=== PATIENT | female | born 1990 | race American Indian/Alaskan Native ===

== ENCOUNTER 2017-02-07 21:39 | Emergency (ER) | payer MEDICAID ==
[2017-02-07 23:21] LABS: Anion Gap 19 mmol/L; Blood Urea Nitrogen 8 mg/dL (7-17); Calcium 8.8 mg/dL (8.4-10.2); Carbon Dioxide 23 mmol/L (22-30); Chloride 95.3 mmol/L (98-107); Glucose 97 mg/dL (65-100); Potassium 3.2 mmol/L (3.6-5.0); Sodium 134 mmol/L (137-145)
[2017-02-07 23:23] LABS: Hematocrit 35.7 % (30.3-42.9); Mean Corpuscular HGB Conc 34 % (30-34); Mean Corpuscular Hemoglobin 31 pg (28-32); Mean Corpuscular Volume 92 fl (79-97); Platelet Count 218 K/mm3 (140-440); Red Blood Count 3.88 M/mm3 (3.65-5.03); Red Cell Distribution Width 14.5 % (13.2-15.2); White Blood Count 10.6 K/mm3 (4.5-11.0)
--- NOTE | 2017-02-08 02:53 | Emergency Department Report ---
HPI - General Chief Complaint: Sore Throat Time Seen by Provider: 02/08/17 02:41 - HPI HPI: Patient is a 26-year-old female presents to ED complaining of pain with swallowing 3 days. Patient states she feels like her throat is sore she describes pain as throbbing and aching in nature she states she is an episode of vomiting today. She admits to mild fever as well as intermittent, generalized, mild generalized headache. Patient states last menstrual period and states she is currently on her cycle. She denies chest pain, shortness of breath, abdominal pain, diarrhea, ED Past Medical Hx - Past Medical History Previous Medical History?: No - Surgical History Past Surgical History?: No - Social History Smoking Status: Current Every Day Smoker Substance Use Type: None - Medications Home Medications: Home Medications Medication Instructions Recorded Confirmed Last Taken Type Cyclobenzaprine HCl [Flexeril 5 MG 5 mg PO TID #20 tab 06/26/15 Unknown Rx TAB] Meclizine [Antivert] 25 mg PO TID PRN #20 tablet 06/26/15 Unknown Rx Vit No.130/Iron/FA 1 each PO QDAY #30 tablet 04/03/16 Unknown Rx [ Tablet] Ibuprofen [Motrin 600 MG tab] 600 mg PO Q8H PRN #30 tablet 02/08/17 Unknown Rx Ondansetron [Zofran ODT TAB] 8 mg PO Q8HR #30 tab.rapdis 02/08/17 Unknown Rx ED Review of Systems ROS: Stated complaint: CAN'T SWALLOW, HEADACHE, VOMITTING, SWEATING Other details as noted in HPI Constitutional: denies: chills, fever Eyes: denies: eye pain, eye discharge, vision change ENT: denies: ear pain, throat pain Respiratory: denies: cough, shortness of breath, wheezing Cardiovascular: denies: chest pain, palpitations Endocrine: no symptoms reported Gastrointestinal: denies: abdominal pain, nausea, diarrhea Genitourinary: denies: urgency, dysuria, discharge Musculoskeletal: denies: back pain, joint swelling, arthralgia Skin: denies: rash, lesions Neurological: denies: headache, weakness, paresthesias Psychiatric: denies: anxiety, depression Hematological/Lymphatic: denies: easy bleeding, easy bruising Physical Exam - Physical Exam Vital Signs: Vital Signs 02/07/17 22:01 Temperature 99.4 F Pulse Rate 90 Respiratory 18 Rate Blood Pressure 113/79 [Right] O2 Sat by Pulse 100 Oximetry Physical Exam: GENERAL: Alert and oriented x3, no apparent distress, Normal Gait, atraumatic. HEAD: Head is normocephalic and a-traumatic. EYES: Extra ocular muscles are intact. Pupils are equal, round, and reactive to light and accommodation. EARS: symetrical, atraumatic, non tender, ear canal clear and moderate cerumen, tympanic membrance non inflamed. gross auditory nml bilaterally. NOSE: Nose symetrical, Nontender,Nares appeared normal. MOUTH:Mouth is well hydrated and without lesions. Tonsils nonerythematous or swollen, Uvula midline, Tongue not elevated. Mucous membranes are moist. Posterior pharynx clear, no exudate or lesions. Patent airways. NECK: Supple. Non edematous, No lymphadenopathy or thyromegaly. No C-spine tenderness LUNGS: Symetrical with respiration, No wheezing, no rales or crackles, CTAB. HEART: S1, S2 present, regular rate and rhythm without murmur, no rubs, no gallops. Non tender to palpation ABDOMEN: No organomegaly was noted,Positive bowel sounds, soft, and non- distended. . Nontender to palpation on all Quadrants, NO CVA tenderness. PSYCHIATRIC: Mood is congruent with affect, denies suicidal or homicidal ideations. SKIN: Warm and dry, No lesions, No ulceration or induration present. ED Course Vital Signs 02/07/17 22:01 Temperature 99.4 F Pulse Rate 90 Respiratory 18 Rate Blood Pressure 113/79 [Right] O2 Sat by Pulse 100 Oximetry ED Medical Decision Making - Lab Data Result diagrams: 02/07/17 22:40 02/07/17 22:40 - Medical Decision Making 25-year-old female presents with ED course: CBC, CMP, urine test, urinalysis, as ordered. Rapid strep test was ordered. Rapid strep test negative. CBC shows low sodium and chloride Patient received 1 L of normal saline, Reglan. Discussed findings with patient. Discussed the patient will be sent home on nausea medication and encouraged increased saturation daily Vital signs are normal patient is no acute distress patient reports feeling better prior to discharge Critical care attestation.: If time is entered above; I have spent that time in minutes in the direct care of this critically ill patient, excluding procedure time. ED Disposition Clinical Impression: Dehydration, mild Acute pharyngitis Qualifiers: Pharyngitis/tonsillitis etiology: unspecified etiology Qualified Code(s): J02.9 - Acute pharyngitis, unspecified Disposition: - TO HOME OR SELFCARE Is pt being admited?: No Does the pt Need Aspirin: No Condition: Stable Instructions: Dehydration (ED), Pharyngitis (ED), Acute Nausea and Vomiting (ED ) Additional Instructions: Make sure you train plenty of fluids daily. Soft food diet Neuro rapid strep test was negative You received IV fluids to hydrate you Follow-up with her primary care physician Prescriptions: Ibuprofen [Motrin 600 MG tab] 600 mg PO Q8H PRN #30 tablet PRN Reason: Pain Ondansetron [Zofran ODT TAB] 8 mg PO Q8HR #30 tab.rapdis Referrals: PRIMARY CARE, [Primary Care Provider] - 3-5 Days PEDRO CASEY MD [Referring] - 3-5 Days [facility] [Outside] - 3-5 Days [facility] [Outside] - 3-5 Days [facility] [Outside] - 3-5 Days Forms: Accompanied Note, Work/School Release Form(ED) Time of Disposition: 06:50
[2017-02-08 04:06] LABS: Bilirubin,Urine NEG (Negative); Blood,Urine LG (Negative); Ketones,Urine 80 mg/dL (Negative); Leukocyte Esterase,Urine TR (Negative); Mucus,Urine 3+ /HPF; Nitrite,Urine NEG (Negative)
[2017-02-08] MEDS ORDERED: NACL 0.9% 1000 ML 1,000 ML IV ONE (04:32)
[2017-02-08] MEDS ORDERED: REGLAN IV ONE (04:32)
[2017-02-08 07:27] VITALS: BP 105/68
== END 2017-02-08 07:26 | disposition home or self-care (01) ==
LOC: ED 21:39
DX: E86.0 Dehydration (principal); J02.9 Acute pharyngitis, unspecified; F17.200 Nicotine dependence, unspecified, uncomplicated
CPT/HCPCS: 36415; 80048; 81001; 85025; 87116; 87430; 96361; 96374; 99283; J2765; J7030

== ENCOUNTER 2017-04-24 09:32 | Emergency (ER) | payer OTHER, MEDICAID ==
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
[2017-04-24] MEDS: MOTRIN PO ONE (11:58)
--- NOTE | 2017-04-24 12:14 | XRay Report ---
LUMBOSACRAL SPINE, 3 VIEWS: History: Back pain Findings: The vertebral bodies, disk spaces and posterior elements are intact. No compression deformity or malalignment. The SI joints are symmetric and unremarkable. Impression: 1. No evidence for acute injury to the lumbar spine.
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
[2017-04-24 13:02] VITALS: BP 119/72
== END 2017-04-24 13:02 | disposition home or self-care (01) ==
LOC: ED 09:32
DX: S39.012A Strain of muscle, fascia and tendon of lower back, initial encounter (principal); V89.2XXA Person injured in unspecified motor-vehicle accident, traffic, initial encounter; Y93.9 Activity, unspecified; Y99.9 Unspecified external cause status; Y92.410 Unspecified street and highway as the place of occurrence of the external cause
CPT/HCPCS: 72100; 99283

== ENCOUNTER 2020-07-10 13:27 | Emergency (ER) | payer MEDICAID ==
--- NOTE | 2020-07-10 13:59 | Event Note ---
ED Screening Note Date of service: 07/10/20 Time: 13:58 ED Screening Note: 6 weeks and complains of abdominal pain and vaginal bleeding starting this morning Third Has not seen an [facility] yet This initial assessment/diagnostic orders/clinical plan/treatment(s) is/are subject to change based on patients health status, clinical progression and re- assessment by fellow clinical providers in the ED. Further treatment and workup at subsequent clinical providers discretion. Patient/guardian urged not to elope from the ED as their condition may be serious if not clinically assessed and managed. Initial orders include: Labs Ultrasound
[2020-07-10 15:29] LABS: Basophils % (Auto) 0.3 % (0.0-1.8); Hemoglobin 12.4 gm/dl (10.1-14.3); Lymphocytes # (Auto) 0.8 K/mm3 (1.2-5.4); Lymphocytes % (Auto) 9.2 % (13.4-35.0); Mean Corpuscular HGB Conc 33 % (30-34); Mean Corpuscular Volume 92 fl (79-97); Monocytes # (Auto) 0.3 K/mm3 (0.0-0.8); Monocytes % (Auto) 3.3 % (0.0-7.3); Platelet Count 295 K/mm3 (140-440); Red Blood Count 4.02 M/mm3 (3.65-5.03); Red Cell Distribution Width 13.6 % (13.2-15.2)
[2020-07-10 15:46] LABS: Alanine Aminotransferase 15 units/L (7-56); Albumin 4.3 g/dL (3.9-5); Blood Urea Nitrogen 10 mg/dL (7-17); Hemolysis Index 3
[2020-07-10 15:49] LABS: BUN/Creatinine Ratio 25
[2020-07-10 15:59] LABS: Bilirubin,Urine NEG (Negative); Blood,Urine NEG (Negative); Color,Urine Yellow (Yellow); Mucus,Urine 3+ /HPF; Protein,Urine <15 mg/dL mg/dL (Negative); Urobilinogen,Urine < 2.0 mg/dL (<2.0)
--- NOTE | 2020-07-10 16:56 | Emergency Department Report ---
HPI - General Chief Complaint: Vaginal Bleeding Time Seen by Provider: 07/10/20 13:57 - HPI HPI: This is a 29-year-old -[place] female who presents to the emergency department with complaint of right lower abdominal and pelvic sharp and cramping pains, mild vaginal bleeding, and some lightheadedness, while . The patient says that her last menstrual cycle was May 23 and she recently had a positive home test. She does not have any RAFTSMAN. She is not on any vitamins. She denies any other past medical history. She has not taken anything for symptoms prior to presentation. No known aggravating or alleviating factors. Currently she says that the abdominal/pelvic pain is 8 out of 10 in intensity. ED Past Medical Hx - Past Medical History Previous Medical History?: No - Surgical History Past Surgical History?: No - Social History Smoking Status: Never Smoker Substance Use Type: None - Medications Home Medications: Home Medications Medication Instructions Recorded Confirmed Last Taken Type Cyclobenzaprine HCl [Flexeril 5 MG 5 mg PO TID #20 tab 06/26/15 Unknown Rx TAB] Meclizine [Antivert] 25 mg PO TID PRN #20 tablet 06/26/15 Unknown Rx Vit No.130/Iron/Folic 1 each PO QDAY #30 tablet 04/03/16 Unknown Rx [ Tablet] Ibuprofen [Motrin 600 MG tab] 600 mg PO Q8H PRN #30 tablet 02/08/17 Unknown Rx Ondansetron [Zofran ODT TAB] 8 mg PO Q8HR #30 tab.rapdis 02/08/17 Unknown Rx Cyclobenzaprine [Flexeril] 10 mg PO BID PRN #10 tablet 04/24/17 Unknown Rx Ibuprofen [Motrin 600 MG tab] 600 mg PO Q8H PRN #30 tablet 04/24/17 Unknown Rx ED Review of Systems ROS: Stated complaint: DIZZY Other details as noted in HPI Comment: All other systems reviewed and negative Constitutional: denies: chills, fever Eyes: denies: eye pain, vision change ENT: denies: ear pain, throat pain Respiratory: denies: cough, shortness of breath Cardiovascular: denies: chest pain, palpitations Gastrointestinal: abdominal pain. denies: vomiting Genitourinary: other (pelvic pain, vaginal bleeding). denies: dysuria Musculoskeletal: denies: back pain, arthralgia Skin: denies: rash, lesions Neurological: denies: headache, weakness Physical Exam - Physical Exam Vital Signs: Vital Signs 07/10/20 14:03 Temperature 98.7 F Pulse Rate 96 H Respiratory 16 Rate Blood Pressure 120/68 [Right] O2 Sat by Pulse 100 Oximetry Physical Exam: GENERAL: The patient is well-developed well-nourished. HENT: Normocephalic. Atraumatic. Patient has moist mucous membranes. EYES: Extraocular motions are intact. NECK: Supple. Trachea is midline. CHEST/LUNGS: Clear to auscultation. There is no respiratory distress noted. HEART/CARDIOVASCULAR: Regular. There is no tachycardia. There is no murmur. ABDOMEN: Abdomen is soft. Unable to reproduce lower abdominal or pelvic pain to palpation. No guarding. Patient has normal bowel sounds. SKIN: Skin is warm and dry. NEURO: The patient is awake, alert, and oriented. The patient is cooperative. The patient has no focal neurologic deficits. Normal speech. MUSCULOSKELETAL: There is no tenderness or deformity. There is no limitation range of motion. ED Course Vital Signs 07/10/20 14:03 Temperature 98.7 F Pulse Rate 96 H Respiratory 16 Rate Blood Pressure 120/68 [Right] O2 Sat by Pulse 100 Oximetry - Consultations Consultation #1: 07/10/20 20:14 As the patient has right-sided pelvic pain and the ultrasound shows a slightly prominent right ovary without evidence of intrauterine or ectopic , I wanted to speak to the RAFTSMAN on-call. Dr. Patel is in agreement that the patient can follow-up outpatient but should get a repeat hormone level and reevaluation in 2 days. ED Medical Decision Making - Lab Data Result diagrams: 07/10/20 14:47 07/10/20 14:47 Lab Results 07/10/20 07/10/20 07/10/20 Range/Units 14:47 14:47 14:47 WBC 9.2 (4.5-11.0) K/mm3 RBC 4.02 (3.65-5.03) M/mm3 Hgb 12.4 (10.1-14.3) gm/dl Hct 37.0 (30.3-42.9) % MCV 92 (79-97) fl MCH 31 (28-32) pg MCHC 33 (30-34) % RDW 13.6 (13.2-15.2) % Plt Count 295 (140-440) K/mm3 Lymph % (Auto) 9.2 L (13.4-35.0) % [place] % (Auto) 3.3 (0.0-7.3) % Eos % (Auto) 0.0 (0.0-4.3) % Baso % (Auto) 0.3 (0.0-1.8) % Lymph # (Auto) 0.8 L (1.2-5.4) K/mm3 [place] # (Auto) 0.3 (0.0-0.8) K/mm3 Eos # (Auto) 0.0 (0.0-0.4) K/mm3 Baso # (Auto) 0.0 (0.0-0.1) K/mm3 Seg Neutrophils % 87.2 H (40.0-70.0) % Seg Neutrophils # 8.1 H (1.8-7.7) K/mm3 Sodium 137 (137-145) mmol/L Potassium 3.5 L (3.6-5.0) mmol/L Chloride 103.8 (98-107) mmol/L Carbon Dioxide 24 (22-30) mmol/L Anion Gap 13 mmol/L BUN 10 (7-17) mg/dL Creatinine 0.4 L (0.6-1.2) mg/dL Estimated GFR > 60 ml/min BUN/Creatinine Ratio 25 % Glucose 122 H (65-100) mg/dL Calcium 9.0 (8.4-10.2) mg/dL Total Bilirubin 0.20 (0.1-1.2) mg/dL AST 16 (5-40) units/L ALT 15 (7-56) units/L Alkaline Phosphatase 62 (35-129) units/L Total Protein 7.5 (6.3-8.2) g/dL Albumin 4.3 (3.9-5) g/dL Albumin/Globulin Ratio 1.3 % HCG, Quant 1314 H (0-4) mIU/mL Urine Color (Yellow) Urine Turbidity (Clear) Urine pH (5.0-7.0) Ur Specific [place] (1.003-1.030) Urine Protein (Negative) mg/dL Urine Glucose (UA) (Negative) mg/dL Urine Ketones (Negative) mg/dL Urine Blood (Negative) Urine Nitrite (Negative) Urine Bilirubin (Negative) Urine Urobilinogen (<2.0) mg/dL Ur Leukocyte Esterase (Negative) Urine WBC (Auto) (0.0-6.0) /HPF Urine RBC (Auto) (0.0-6.0) /HPF U Epithel Cells (Auto) (0-13.0) /HPF Urine Mucus /HPF Blood Type 07/10/20 07/10/20 Range/Units 14:47 15:41 WBC (4.5-11.0) K/mm3 RBC (3.65-5.03) M/mm3 Hgb (10.1-14.3) gm/dl Hct (30.3-42.9) % MCV (79-97) fl MCH (28-32) pg MCHC (30-34) % RDW (13.2-15.2) % Plt Count (140-440) K/mm3 Lymph % (Auto) (13.4-35.0) % [place] % (Auto) (0.0-7.3) % Eos % (Auto) (0.0-4.3) % Baso % (Auto) (0.0-1.8) % Lymph # (Auto) (1.2-5.4) K/mm3 [place] # (Auto) (0.0-0.8) K/mm3 Eos # (Auto) (0.0-0.4) K/mm3 Baso # (Auto) (0.0-0.1) K/mm3 Seg Neutrophils % (40.0-70.0) % Seg Neutrophils # (1.8-7.7) K/mm3 Sodium (137-145) mmol/L Potassium (3.6-5.0) mmol/L Chloride (98-107) mmol/L Carbon Dioxide (22-30) mmol/L Anion Gap mmol/L BUN (7-17) mg/dL Creatinine (0.6-1.2) mg/dL Estimated GFR ml/min BUN/Creatinine Ratio % Glucose (65-100) mg/dL Calcium (8.4-10.2) mg/dL Total Bilirubin (0.1-1.2) mg/dL AST (5-40) units/L ALT (7-56) units/L Alkaline Phosphatase (35-129) units/L Total Protein (6.3-8.2) g/dL Albumin (3.9-5) g/dL Albumin/Globulin Ratio % HCG, Quant (0-4) mIU/mL Urine Color Yellow (Yellow) Urine Turbidity Clear (Clear) Urine pH 6.0 (5.0-7.0) Ur Specific [place] 1.025 (1.003-1.030) Urine Protein <15 mg/dl (Negative) mg/dL Urine Glucose (UA) Neg (Negative) mg/dL Urine Ketones Neg (Negative) mg/dL Urine Blood Neg (Negative) Urine Nitrite Neg (Negative) Urine Bilirubin Neg (Negative) Urine Urobilinogen < 2.0 (<2.0) mg/dL Ur Leukocyte Esterase Neg (Negative) Urine WBC (Auto) 2.0 (0.0-6.0) /HPF Urine RBC (Auto) 2.0 (0.0-6.0) /HPF U Epithel Cells (Auto) 7.0 (0-13.0) /HPF Urine Mucus 3+ /HPF Blood Type AB POSITIVE - Radiology Data Radiology results: report reviewed US OB transvaginal, US OB <= 14 weeks fetus INDICATION / CLINICAL INFORMATION: pain and bleeding in . COMPARISON: None available. FINDINGS: No evidence of intrauterine . Endometrial stripe measures 8 mm in thickness. Right ovary is slightly prominent, measuring 5 cm x 4 cm x 3.5 cm, but there is no abnormal ovarian mass. Left ovary is negative. Color Doppler imaging shows normal vascular flow in both ovaries. Some free fluid is demonstrated, with increased echogenicity, possibly hemorrhage. - Medical Decision Making This patient presents to the emergency department with complaint of some lower abdominal and/or pelvic pain, worst on the right side, as well as some vaginal bleeding that started this morning. The patient believes herself to be about 6 weeks as her last menstrual cycle was in mid May and she had a positive home test. On examination I am unable to reproduce any abdominal or pelvic pain to palpation, but the patient continues to say that she has right-sided pains. The abdomen is soft, nondistended and nontoxic in appearance. Patient's labs are mostly unremarkable but does show a beta-hCG of 1314. The patient had a transvaginal/ ultrasound that shows a mildly enlarged right ovary with normal flow to the bilateral ovaries, some debris within the uterus that may be blood, but no evidence of intrauterine . The endometrial stripe appears to be a normal size. The patient's blood type is AB+ and therefore she does not require the RhoGam shot at this time. I spoke to the RAFTSMAN on-call given the reading of a slightly prominent right ovary without evidence of intrauterine . He is in agreement that the patient can safely follow-up outpatient but recommends reevaluation, and most likely a repeat beta-hCG, in 2 days. The patient has been instructed to go to the closest emergency department with any increased abdominal or pelvic pain, increased vaginal bleeding, or with any acute distress. Critical Care Time: No Critical care attestation.: If time is entered above; I have spent that time in minutes in the direct care of this critically ill patient, excluding procedure time. ED Disposition Clinical Impression: Threatened miscarriage Disposition: DC- TO HOME OR SELFCARE Is pt being admited?: No Condition: Stable Instructions: Threatened Miscarriage, Vaginal Bleeding During , First Trimester Additional Instructions: Please follow-up with an RAFTSMAN or return to the emergency department in 2 days for a repeat hormone level, as well as a repeat evaluation. Your hormone level today was 1314. Return to the closest emergency department sooner with any increased pain, increased bleeding, or with any acute distress. Please avoid any NSAIDs, such as ibuprofen, Aleve, naproxen, until follow-up w ith an RAFTSMAN. You can take Tylenol every 4-6 hours, using the dosing on the back of the bottle, as needed for any discomfort. Referrals: [facility] [Primary Care Provider] - 2-3 Days [facility] [Provider Group] - 2-3 Days [facility] [Provider Group] - 2-3 Days [facility] [Provider Group] - 2-3 Days Time of Disposition: 20:17
[2020-07-10] MEDS ORDERED: ACETAMINOPHEN 325 MG TAB PO ONE (17:21)
--- NOTE | 2020-07-10 19:38 | Ultrasound Report ---
US OB transvaginal, US OB <= 14 weeks fetus INDICATION / CLINICAL INFORMATION: pain and bleeding in . COMPARISON: None available. FINDINGS: No evidence of intrauterine . Endometrial stripe measures 8 mm in thickness. Right ovary is slightly prominent, measuring 5 cm x 4 cm x 3.5 cm, but there is no abnormal ovarian m ass. Left ovary is negative. Color Doppler imaging shows normal vascular flow in both ovaries. Some free fluid is demonstrated, with increased echogenicity, possibly hemorrhage. Signer Name: Judson Mazariegos MD Signed: 07/10/2020 7:34 PM Workstation Name: [id number]
[2020-07-10] MEDS ORDERED: HYDROcodone/ACETAMINOPHEN 5-325 MG TAB PO ONE (20:09)
[2020-07-10 20:34] VITALS: BP 115/63
== END 2020-07-10 20:35 | disposition home or self-care (01) ==
LOC: ED 13:27
DX: O20.0 Threatened abortion (principal); Z3A.01 Less than 8 weeks gestation of pregnancy; Z79.1 Long term (current) use of non-steroidal anti-inflammatories (NSAID); Z79.899 Other long term (current) drug therapy
CPT/HCPCS: 36415; 76801; 76817; 80053; 81001; 84702; 85025; 86900; 86901

== ENCOUNTER 2020-07-23 11:35 | Observation (INO) | payer MEDICAID ==
--- NOTE | 2020-07-23 13:44 | Short Stay Summary ---
Short Stay Documentation Date of service: 07/23/20 Narrative H&P: This is a 29 year-old female who presented to ED with vaginal bleeding on 07/10/2020. She was noted to have a QBHCG of 1314. She was allowed home and was evaluated n our office on 07/21/20 where by her LMP she should have been 8weeks ga however US revealed no IUP, QBHCG drawn on that days was 2015. She presented today for follow up stating she as had heavy vaginal bleeding and minimal pain. Findings and options reviewed, questions were encouraged and answered. She desires to proceed with Methotrexate therapy for suspected ectopic . Consent reviewed and signed she was instructed to go to [facility] for Methotrexate therapy. Past History : 4 Term Births: 2 Premature Births: 0 Living Children: 2 Para: 1 Mult. Births: 0 Prev : 1 Prev. attempt? 0 Aborta: 1 Elect. Ab: 0 Spont. Ab: 1 Ectopics: 0 # 1 Delivery date: 10/16/2010 Weeks Gestation: 39 labor: no Delivery type: Hours of labor: 8 Anesthesia type: epidural Delivery location: [place] [facility] Sex: Female weight: 6-9 Name: [place] # 2 Delivery date: 2015 Delivery type: SAB Comments: No D&C # 3 Delivery date: 10/2018 Weeks Gestation: term labor: no Delivery type: Anesthesia type: epidural Delivery location: [facility] Sex: Male weight: 9-15 Comments: Emergency : Macrosomia Risk Factors: Smoked Tobacco Use: Never smoker Smokeless Tobacco Use: Never Drug use: yes Substance: marijuana HIV high-risk behavior: no Alcohol use: yes Type: occasional Comments: occ Exercise: no Seatbelt use: 100 % Family History Risk Factors: Family History of [place] in females < 65 years old: no Family History of TX in males < 55 years old: no Past Medical History: Reviewed history from 12/26/2016 and no changes required: Negative Past Medical History Past Surgical History: Reviewed history from 12/26/2016 and no changes required: : 2019 Past Medical History Anesthesia Complications: negative Anemia: negative Autoimmune Disorder: negative Bleeding Disorder: negative Blood Transfusions: negative Breast Disease: negative Diabetes: negative Heart Disease: negative Hypertension: negative Hepatitis/Liver Disease: negative Kidney Disease/UTI: negative Neurologic/Epilepsy/Migraines: negative Phlebitis/Varicosities: negative Psychiatric: negative Pulmonary Disease/Asthma: negative Thyroid Disease: negative Hospitalizations: negative Surgery (Non-clinical case manager): : 2019 Abnormal PAP: negative SLAVA Exposure: negative Infertility: negative Uterine Anomaly: negative Uterine Surgery (not C/S): negative Other Gynecologic Problems: negative Social Hx: unemployed Patient is single Infection History Hx of STD: chlamydia HIV Risk Eval: no Hepatitis B Risk Eval: low risk Personal hx. of genital herpes: yes Partner hx. of genital herpes: no Rash, Viral, or Febrile illness since last LMP? no Varicella/Chicken Pox Status: No Genetic History Congenital Heart Defect: Mom: no Dad: no Michele Disease: Mom: no Dad: no Thalassemia Mom: no Dad: no Neural Tube Defect Mom: no Dad: no Down's Syndrome Mom: no Dad: no Spencer-Sachs Mom: no Dad: no Sickle Cell Disease/Trait Mom: no Dad: no Hemophilia Mom: no Dad: no Muscular Dystrophy Mom: no Dad: no Cystic Fibrosis Mom: no Dad: no Krista Chorea Mom: no Dad: no Mental Retardation Mom: no Dad: no Fragile X Mom: no Dad: no Other Genetic/Chromosomal Disorder Mom: no Dad: no Child w/other defect Mom: no Dad: no Enviromental Exposures Enviromental Exposures Reviewed Xray Exposure: no Medication, drug, or alcohol use since LMP: no Chemical/Other Exposure: no Exposure to Cat Liter: no Hx of Parvovirus (Fifth Disease): no Occupational Exposure to Children: none Active Medications (reviewed today): None Current Allergies (reviewed today): No known allergies - History Principal diagnosis: Suspected Ectopic - Allergies and Medications Current Medications: Allergies No Known Allergies Allergy (Verified 06/26/15 20:31) Home Medications Medication Instructions Recorded Confirmed Last Taken Type Cyclobenzaprine HCl [Flexeril 5 MG 5 mg PO TID #20 tab 06/26/15 Unknown Rx TAB] Meclizine [Antivert] 25 mg PO TID PRN #20 tablet 06/26/15 Unknown Rx Vit No.130/Iron/Folic 1 each PO QDAY #30 tablet 04/03/16 Unknown Rx [ Tablet] Ibuprofen [Motrin 600 MG tab] 600 mg PO Q8H PRN #30 tablet 02/08/17 Unknown Rx Ondansetron [Zofran ODT TAB] 8 mg PO Q8HR #30 tab.rapdis 02/08/17 Unknown Rx Cyclobenzaprine [Flexeril] 10 mg PO BID PRN #10 tablet 04/24/17 Unknown Rx Ibuprofen [Motrin 600 MG tab] 600 mg PO Q8H PRN #30 tablet 04/24/17 Unknown Rx - Physical exam General appearance: no acute distress - Hospital course Hospital course: 07/24/20 Patient restiing in bed, moderate bleeding, no pain. Questions encouraged and answered, she voiced understanding and agrees with plan of care Received Methotrexate no complications, she's now allowed home. - Disposition Condition at discharge: Stable Disposition: DC- TO HOME OR SELFCARE - Discharge Diagnoses (1) Encounter for assessment for suspected ectopic Status: Acute (2) Abnormal Status: Acute Short Stay Discharge Plan Activity: other (No sex. Stay at home. Make sure to have someone available to take you to the hospital should you have any problems. ) Weight Bearing Status: Full Weight Bearing Diet: regular Additional Instructions: Call the office for any concerns or problems Follow up with: TARAS DOSS MD [Staff Physician] - 07/27/20 (Your appointment with Dr. Doss is scheduled for 07/27/20 at 200p. Please have your blood drawn at [facility] in the morning prior to your office appointment.) Forms: Methotrexate D/C Instructions Other Discharge Orders: HCG,Quantitative Time Frame: 07/27/20, Facility: [facility], Location: LABORATORY
[2020-07-24 13:19] LABS: Basophils % (Auto) 0.3 % (0.0-1.8); Eosinophils # (Auto) 0.1 K/mm3 (0.0-0.4); Eosinophils % (Auto) 0.8 % (0.0-4.3); Hematocrit 32.5 % (30.3-42.9); Hemoglobin 11.6 gm/dl (10.1-14.3); Lymphocytes # (Auto) 1.8 K/mm3 (1.2-5.4); Lymphocytes % (Auto) 27.7 % (13.4-35.0); Mean Corpuscular HGB Conc 36 % (30-34); Mean Corpuscular Volume 92 fl (79-97); Monocytes # (Auto) 0.3 K/mm3 (0.0-0.8); Platelet Count 315 K/mm3 (140-440); Red Blood Count 3.54 M/mm3 (3.65-5.03); Red Cell Distribution Width 14.4 % (13.2-15.2)
[2020-07-24 13:27] LABS: Alanine Aminotransferase 13 units/L (7-56); Albumin 4.3 g/dL (3.9-5); Blood Urea Nitrogen 8 mg/dL (7-17); Calcium 8.9 mg/dL (8.4-10.2); Hemolysis Index 22
[2020-07-24 13:40] LABS: BUN/Creatinine Ratio 16
[2020-07-24 17:14] VITALS: BP 118/67
== END 2020-07-24 17:32 | disposition home or self-care (01) ==
LOC: PREOBSVTOIN 11:35 → PREINTOOBSV 11:37 → 3A 12:58 → UNDOADMOB 12:58 → OB 07-24 11:39
PROVIDERS: ADMIT Obstetrics & Gynecology; ATTEND Obstetrics & Gynecology
DX: O46.91 Antepartum hemorrhage, unspecified, first trimester (principal); Z3A.08 8 weeks gestation of pregnancy; Z98.891 History of uterine scar from previous surgery
CPT/HCPCS: 36415; 80053; 85025; 86900; 86901; 96372; G0378; G0379; J9260